=== PATIENT | male | born 1990 | race Hispanic/Latino ===

== ENCOUNTER 2021-08-28 13:51 | Emergency (ER) | payer OTHER, SELFPAY ==
[2021-08-28 14:00] VITALS: BP 126/76; PULSE 65; RESP 18; TEMP 36.9; O2SAT 100; BMI 22.1
--- NOTE | 2021-08-28 14:04 | ED.WOUNDLAC ---
HPI - Wound/Laceration <Des Watts PA-C - Last Filed: 08/28/21 15:30> General Chief Complaint: Wound/Laceration Stated Complaint: Lac to right thumb Time Seen by Provider: 08/28/21 13:59 History of Present Illness HPI narrative: Rohit presents today with chief complaint of laceration to his right thumb. He reports that he was cutting some lettuce and the knife slipped cutting into his thumb. He is left-hand dominant and does not know when his last tetanus was. He denies any other significant injuries or acute concerns or complaints at this time. He is otherwise healthy and does not have any known significant past medical problems. Related Data Allergies Allergy/AdvReac Type Severity Reaction Status Date / Time No Known Drug Allergies Allergy Verified 08/28/21 14:03 Review of Systems <Des Watts PA-C - Last Filed: 08/28/21 15:30> Review of Systems Narrative: As per HPI Patient History <Des Watts PA-C - Last Filed: 08/28/21 15:30> Social History Smoking Status: Never smoker Exam <Des Watts PA-C - Last Filed: 08/28/21 15:30> Narrative Exam Narrative: Exam Narrative: Const General: cooperative, healthy appearing, comfortable, no acute distress, well developed and well groomed Nutritional Appearance: average body habitus Orientation: alert and oriented x3 HENMT Head: normal to inspection and atraumatic Ears: hearing grossly normal bilaterally Nose: external nose normal and nares normal Face and sinus: normal facial exam Neck Neck: normal visual inspection and supple Resp Effort & Inspection: normal respiratory effort, able to speak in complete sentences, no audible wheezes, not labored, no nasal flaring and no respiratory distress Neuro General: alert, oriented x3, gait normal, tone normal and moves all extremities Cognition: normal cognition Speech: speech normal Gait: normal gait Extremities Upper extremities exposed. Left thumb has small tip avulsion involving the distal end of the nail. It is oozing small amount of blood. Capillary refill is normal. Sensation is intact. Psych Appearance: grossly normal and well kempt Mental Status: mental status grossly normal Speech and Movement: speech and movement normal Mood: congruent mood Affect: normal affect Initial Vital Signs Initial Vital Signs: Vital Signs Temperature 98.4 F 08/28/21 14:00 Pulse Rate 65 08/28/21 14:00 Respiratory Rate 18 08/28/21 14:00 Blood Pressure 126/76 08/28/21 14:00 Pulse Oximetry 100 08/28/21 14:00 <Amisha Dowell DO - Last Filed: 09/02/21 00:27> Initial Vital Signs Initial Vital Signs: Vital Signs Temperature 98.4 F 08/28/21 14:00 Pulse Rate 65 08/28/21 14:00 Respiratory Rate 18 08/28/21 14:00 Blood Pressure 126/76 08/28/21 14:00 Pulse Oximetry 100 08/28/21 14:00 Course <Des Watts PA-C - Last Filed: 08/28/21 15:30> Orders Ordered: Discontinued Medications Bacitracin (Bacitracin Oint 0.9 Gm Pckt) 1 applic TOP NOW ONE Stop: 08/28/21 14:10 Last Admin: 08/28/21 14:18 Dose: 1 applic Documented by: CARLII Diphtheria/Tetanus/Acell Pertussis (Tet,Diph,Pertuss(Acell),Vac/Pf 0.5 Ml Syringe) 0.5 ml IM .ONCE ONE Stop: 08/28/21 14:10 Last Admin: 08/28/21 14:18 Dose: 0.5 ml Documented by: FERNANDA Vital Signs Vital signs: Vital Signs - 8 hr 08/28/21 14:00 Temperature 98.4 F Pulse Rate 65 Respiratory Rate 18 Blood Pressure 126/76 Pulse Oximetry 100 <Amisha Dowell DO - Last Filed: 09/02/21 00:27> Orders Ordered: Discontinued Medications Bacitracin (Bacitracin Oint 0.9 Gm Pckt) 1 applic TOP NOW ONE Stop: 08/28/21 14:10 Last Admin: 08/28/21 14:18 Dose: 1 applic Documented by: [email or web address] Diphtheria/Tetanus/Acell Pertussis (Tet,Diph,Pertuss(Acell),Vac/Pf 0.5 Ml Syringe) 0.5 ml IM .ONCE ONE Stop: 08/28/21 14:10 Last Admin: 08/28/21 14:18 Dose: 0.5 ml Documented by: FERNANDA Vital Signs Vital signs: Vital Signs - 8 hr 08/28/21 14:00 Temperature 98.4 F Pulse Rate 65 Respiratory Rate 18 Blood Pressure 126/76 Pulse Oximetry 100 [facility] - Wound/Laceration <Des Watts PA-C - Last Filed: 08/28/21 15:30> [facility] Narrative Medical decision making narrative: Superficial tip avulsion is noted. No bony involvement. There is nothing to suture back into place and no vessels to tie off. Pressure dressing was placed with topical antibiotics. Tetanus is updated. No other obvious injuries noted. Discharge Plan Departure Patient Disposition: Home Clinical Impression: Avulsion, finger tip Qualifiers: Encounter type: initial encounter Qualified Code(s): S61.209A - Unspecified open wound of unspecified finger without damage to nail, initial encounter Instructions: DI for Wound Infection, DI for Minor Laceration Activity Restrictions/Additional Instructions: Please apply topical antibiotics and change the bandage once daily. If you experience increased redness, swelling, increased pain, fever or have any other acute concerns or complaints do not hesitate to return for re-evaluation. Thank you Des Watts PA-C <Amisha Dowell DO - Last Filed: 09/02/21 00:27> Cosign ED Attending Cosignature Attestation: I was immediately available in the department for consultation. Documentation has been reviewed.
[2021-08-28] MEDS: BACITRACIN OINT 0.9 GM PCKT 1 APPLIC TOP (14:18)
[2021-08-28] MEDS: TET,DIPH,PERTUSS(ACELL),VAC/PF 0.5 ML SYRINGE IM (14:18)
== END 2021-08-28 14:33 | disposition home or self-care (01) ==
PROVIDERS: Emergency Provider Physician Assistant
DX: S61.001A Unspecified open wound of right thumb without damage to nail, initial encounter (principal); W26.0XXA Contact with knife, initial encounter; Z23 Encounter for immunization; Y99.0 Civilian activity done for income or pay
CPT/HCPCS: 90471; 99283; 90715